=== PATIENT | male | born 1955 | race Caucasian/White ===

== ENCOUNTER 2016-11-14 22:49 | Emergency (ER) | payer BC ==
[~2016-11-14 22:49] MED LIST: ASCO500T16 PO; CHOL100010 PO; CYAN500T13 PO; DILT-115 PO; FERR325T PO; TOPI50TA16 PO
[2016-11-14 22:53] VITALS: TEMP 37; Ht 180.3 cm
[2016-11-14] MEDS ORDERED: DIAZEPAM INJ 5 MG/ML 2 ML CARP IM STA (23:21)
[2016-11-14] MEDS ORDERED: DEXAMETHASONE SOD INJ 10 MG/ML VIAL IM STA (23:21)
--- NOTE | 2016-11-14 23:45 | EMERGENCY ROOM VISIT NOTE ---
ED Visit Note First contact with patient: 23:10 CHIEF COMPLAINT: Low back pain HISTORY OF PRESENT ILLNESS: This 61-year-old male patient presents to the emergency department, ambulatory, complaining of pain in the low back which began Tuesday after slipping in the shower. The patient states he landed on his left side. He has been experiencing intermittent left lower back pain for the past 5 days. The pain is now constant and worse with movement. The pain worsens with coughing, sneezing, or other sharp movements. The patient notes the pain as sharp and a 10/10 at its worst. The patient has taken nothing for relief of the pain. He has been using an ice pack, icy hot, and warm compresses which to relieve the pain temporarily. The patient denies any loss of control of their bowel or bladder functions. There has been no leg numbness or weakness, and no change in sensation. No nausea or vomiting or abdominal pain. No chest pain or shortness of breath. The patient has not had prior back injuries. No dysuria or increased urinary frequency. No hematuria. REVIEW OF SYSTEMS: A 10 system review of systems was performed with positives and pertinent negatives listed in the history of present illness. All other systems were reviewed and are negative. ALLERGIES: None MEDICATIONS: Please see list. I did personally review the patient's medication list with him at bedside. PMH: Hypertension, seizures SOCIAL HISTORY: The patient lives locally with family. He denies drug use. The patient does admit to occasional alcohol use. The patient states he smokes approximately 6 cigarettes per day. PHYSICAL EXAM: VITALS: Vitals are noted on the nurse's note and reviewed by myself. Vital signs stable. GENERAL: This is a 61-year-old male, in no acute distress, nondiaphoretic, well- developed well-nourished. SKIN: 2 small bruises noted on the left low back in the lumbar region. These are distal to the ribs, but proximal to the pelvis. The skin was otherwise without rashes, erythema, edema, or bruising. Capillary refill less than 2 seconds. NECK: Supple without nuchal rigidity. No cervical spine tenderness. No paraspinous muscle tenderness. HEART: Regular rate and rhythm without murmurs gallops or rubs. LUNGS: Clear to auscultation bilaterally without wheezes, rales or rhonchi. ABDOMEN: Positive bowel sounds x 4. Normal tympanic percussion. Soft, nontender, without masses or organomegaly. Ham sign negative. MUSCULOSKELETAL: No muscle atrophy, erythema, or edema noted of the back. There is no tenderness over the lumbar spinous processes. There is significant tenderness over the paraspinous muscles on the left in the lumbar region. There is no tenderness over the thoracic spine or paraspinous muscles. There are muscle spasms present. The patient is slow to move around with maximum tenderness with sitting from a lying position. Negative straight leg raise test. NEURO: Patient was alert and oriented to person place and time. Normal sensation to light and sharp touch. Deep tendon reflexes 2+ in the lower extremities. Dorsalis pedis pulse 2+ bilaterally. Strength 5/5 and equal in the bilateral lower extremities. EMERGENCY DEPARTMENT COURSE: The patient was seen and evaluated as above. He was given Valium and Decadron and did note mild relief in his symptoms. A urinalysis was performed and revealed no hematuria. Upon reexamination of the patient, he is now complaining of tenderness in the posterior left ribs. An x- ray was ordered and reviewed by myself and Dr. Agustin. We do suspect a possible rib fracture, however did not note anything significantly displaced. This will be reviewed by radiologist tomorrow morning. Based on the patient's symptoms and workup, and his improvement with medications, I do suspect musculoskeletal cause of his injury. He was discharged home in good condition. Patient was found to have normal blood pressure on screening and does not require follow-up. I attest that I have personally reviewed the patient's current medication list. I did consult with PDMP and did not note any red flags. DIFFERENTIAL DIAGNOSIS: Internal bleeding, lumbar strain, lumbar contusion, lumbar fracture, pelvic fracture, rib fracture, splenic laceration, renal contusion, and others DIAGNOSIS: Lumbar strain with muscle spasms, possible rib fracture DISCHARGE INSTRUCTIONS AND TREATMENT: You have been treated in the Emergency Department for Back Pain. You have received pain medicine in the emergency department which impairs your ability to operate a vehicle. It is illegal for you to drive after receiving these medicines. You have been prescribed OxyIR to be used for pain control. This is a narcotic medication. You cannot drive or consume alcohol while on this medicine. This medicine should only be used for pain that cannot be controlled with over-the- counter pain medicines. You have been prescribed Flexeril (cyclobenzaprine) 1-2 tabs orally, three times per day. Do NOT exceed 30 mg (6 tabs) per day. Take your first dose at bedtime as it can make you drowsy. Always take all medications as prescribed. ( your homepack is for 10mg tabs. Take 0.5-1 tablet at a time of the pills you were given in the ED). You have been prescribed a Medrol Dosepak. This is a steroid which will help decrease your inflammation, redness, and itch. Take the medicine as prescribed. Take the ENTIRE 6 day course of the steroids. For pain control, you can use the following ykkp-wwi-mqvavyw medicines (if >12 yo): Ibuprofen(Motrin, Advil) may be used for fever or pain. Use 600mg every six hours as needed. Take with food. Avoid using more than 2400mg in a 24 hour period. Do not use 2400mg per day for more than three consecutive days without physician direction. Prolonged inappropriate use can lead to stomach upset or ulcers. (AND/OR) Acetaminophen(Tylenol) may be used for fever or pain. Use 1000mg every six hours as needed. Avoid using more than 3000mg in a 24 hour period. If this is an acute injury, ice can be applied to the area of pain for the first 3 days to help decrease pain and inflammation. After the first 3 days, a heating pad can be used over the area for continued soothing relief. You should schedule a follow-up appointment in 2-3 days with your Primary Care Provider for further evaluation and treatment of your back pain. Return to the Emergency Department if your current symptoms worsen despite treatment course outlined above, or if you develop any of the following symptoms : intractable pain despite aforementioned treatment course, loss of control of your bowel or bladder, numbness or tingling in your groin, or development of a fever. Problem List Medical Problems: (1) Thyroid mass Status: Chronic Current/Historical Medications Scheduled Ascorbic Acid (Ascorbic Acid), 500 MG PO DAILY Diltiazem Hcl Ext Rel (Tiazac), 240 MG PO DAILY Ferrous Sulfate (Ferrous Sulfate), 325 MG PO DAILY Topiramate (Topamax), 50 MG PO BID Allergies Coded Allergies: No Known Allergies (Verified , 11/14/16) Vital Signs Date Time Temp Pulse Resp B/P (MAP) Pulse Ox O2 Delivery O2 Flow Rate FiO2 11/14/16 22:53 37.0 82 18 151/93 98 Room Air Medications Administered Medications (Trade) Dose Ordered Sig/Alicia Route Start Time Stop Time Status Last Admin Dose Admin Dexamethasone Sodium Phosphate (Decadron Inj) 10 mg NOW STAT IM 11/14/16 23:21 11/14/16 23:23 DC 11/14/16 23:40 10 MG Diazepam (Valium Inj) 10 mg NOW STAT IM 11/14/16 23:21 11/14/16 23:23 DC 11/14/16 23:40 10 MG Departure Information Impression Primary Impression: Lumbar contusion Additional Impression: Contusion of rib on left side Dispostion Home / Self-Care Condition GOOD Prescriptions Methylprednisolone (MEDROL DOSEPAK) 4 Mg Addison 0 PO DAILY, #1 PKT Prov: Missy Taveras PA-C 11/15/16 Oxycodone Ir (Roxicodone Ir) 5 Mg Tab 1 TAB PO Q4-6H Y for Pain, #15 TAB For Initial Treatment Prov: Missy Taveras PA-C 11/15/16 Cyclobenzaprine Hcl (FLEXERIL) 5 Mg Tab 5 MG PO TID, #15 TAB PRN Prov: Missy Taveras PA-C 11/15/16 Referrals Sally Hopkins (PCP) Patient Instructions ED Contusion Back, ED Contusion Vs Minor Fx Rib, ED Low Back Pain Injury, [facility] Additional Instructions You have been treated in the Emergency Department for Back Pain. You have received pain medicine in the emergency department which impairs your ability to operate a vehicle. It is illegal for you to drive after receiving these medicines. You have been prescribed OxyIR to be used for pain control. This is a narcotic medication. You cannot drive or consume alcohol while on this medicine. This medicine should only be used for pain that cannot be controlled with over-the- counter pain medicines. You have been prescribed Flexeril (cyclobenzaprine) 1-2 tabs orally, three times per day. Do NOT exceed 30 mg (6 tabs) per day. Take your first dose at bedtime as it can make you drowsy. Always take all medications as prescribed. ( your homepack is for 10mg tabs. Take 0.5-1 tablet at a time of the pills you were given in the ED). You have been prescribed a Medrol Dosepak. This is a steroid which will help decrease your inflammation, redness, and itch. Take the medicine as prescribed. Take the ENTIRE 6 day course of the steroids. For pain control, you can use the following goay-sjy-pvvgdrx medicines (if >12 yo): Ibuprofen(Motrin, Advil) may be used for fever or pain. Use 600mg every six hours as needed. Take with food. Avoid using more than 2400mg in a 24 hour period. Do not use 2400mg per day for more than three consecutive days without physician direction. Prolonged inappropriate use can lead to stomach upset or ulcers. (AND/OR) Acetaminophen(Tylenol) may be used for fever or pain. Use 1000mg every six hours as needed. Avoid using more than 3000mg in a 24 hour period. If this is an acute injury, ice can be applied to the area of pain for the first 3 days to help decrease pain and inflammation. After the first 3 days, a heating pad can be used over the area for continued soothing relief. You should schedule a follow-up appointment in 2-3 days with your Primary Care Provider for further evaluation and treatment of your back pain. Return to the Emergency Department if your current symptoms worsen despite treatment course outlined above, or if you develop any of the following symptoms : intractable pain despite aforementioned treatment course, loss of control of your bowel or bladder, numbness or tingling in your groin, or development of a fever. Work Instructions Return To Work: 2 days Problem Qualifiers Primary Impression: Lumbar contusion Encounter type: initial encounter Qualified Codes: S30.0XXA - Contusion of lower back and pelvis, initial encounter Additional Impression: Contusion of rib on left side Encounter type: initial encounter Qualified Codes: S20.212A - Contusion of left front wall of thorax, initial encounter
[2016-11-15] MEDS ORDERED: CYCL5TAB PO (01:03)
[2016-11-15] MEDS ORDERED: OXYC1TAB3 PO (01:03)
[2016-11-15] MEDS ORDERED: METH4PAK PO (01:03)
[2016-11-15] MEDS ORDERED: FLEXERIL HOME PACK 10 MG VIAL PO ONE (01:15)
[2016-11-15] MEDS ORDERED: OXYCODONE IR HOME PACK PO ONE (01:15)
[2016-11-15 01:20] VITALS: BP 132/79; PULSE 63; O2SAT 95
--- NOTE | 2016-11-15 06:42 | DIAGNOSTIC IMAGING REPORT ---
L RIBS UNILATERAL WITH PA CHEST HISTORY: 61 years-old Male left posterior rib pain s/p fall acute left-sided rib pain status post fall. COMPARISON: Chest radiograph 06/04/2014 TECHNIQUE: Frontal view of the chest with 4 views of the left ribs FINDINGS: Cardiomediastinal and hilar silhouettes are within normal limits. There is no pneumothorax, pleural effusion or focal airspace consolidation. Surgical suture material projects over the left upper lobe. Ill-defined lucency is noted involving the posterior aspect of the left 11th rib without displaced fracture identified. Remaining ribs appear unremarkable. IMPRESSION: 1. No acute cardiopulmonary process. No pneumothorax. 2. Ill-defined lucency of the posterior left 11th rib may reflect acute nondisplaced fracture. Correlate with point tenderness. No acute displaced rib fracture is identified. The above report was generated using voice recognition software. It may contain grammatical, syntax or spelling errors. Electronically signed by: Eron Ceballos M.D. 11/15/2016 6:41 AM Dictated Date/Time: 11/15/2016 6:37 AM
== END 2016-11-15 01:20 | disposition home or self-care (01) ==
LOC: C.EDB 22:51
DX: S30.0XXA Contusion of lower back and pelvis, initial encounter (principal); S20.212A Contusion of left front wall of thorax, initial encounter; W01.0XXA Fall on same level from slipping, tripping and stumbling without subsequent striking against object, initial encounter; Y93.E1 Activity, personal bathing and showering; I10 Essential (primary) hypertension; F17.210 Nicotine dependence, cigarettes, uncomplicated; Z79.899 Other long term (current) drug therapy

== ENCOUNTER 2017-07-01 21:58 | Inpatient (IN) | payer BC, OTHER ==
[~2017-07-01] VITALS: Ht 177.8 cm; Wt 61.9 kg
[~2017-07-01 21:58] MED LIST changes: -CHOL100010 PO; -CYAN500T13 PO; +FERR1TAB62 PO; -FERR325T PO
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
[2017-07-01 22:43] LABS: BASO % 1.7 %; BASO ABS # 0.13 K/uL (0-0.2); EOS ABS # 0.22 K/uL (0-0.5); HEMATOCRIT 40.6 % (42-52); HEMOGLOBIN 14.1 g/dL (14.0-18.0); IG# 0.06 K/uL (0.00-0.02); LYMPH % 32.1 %; LYMPH ABS # 2.39 K/uL (1.2-3.4); MEAN CELL VOLUME 98.8 fL (80-100); MEAN CORPUSCULAR HEMOGLOBIN 34.3 pg (25-34); MEAN CORPUSCULAR HGB CONC 34.7 g/dl (32-36); MEAN PLATELET VOLUME 9.4 fL (7.4-10.4); MONO % 8.9 %; MONO ABS # 0.66 K/uL (0.11-0.59); NEUT % 53.5 %; NEUT ABS # 3.99 K/uL (1.4-6.5); PLATELET COUNT 260 K/uL (130-400); RED CELL DISTRIBUTION WIDTH CV 12.8 % (11.5-14.5); RED CELL DISTRIBUTION WIDTH SD 46.4 fL (36.4-46.3); WHITE BLOOD COUNT 7.45 K/uL (4.8-10.8)
[2017-07-01 22:50] LABS: PTT PATIENT 25.7 SECONDS (21.0-31.0)
[2017-07-01 23:06] LABS: ALBUMIN 4.3 gm/dl (3.4-5.0); CALCIUM 8.2 mg/dl (8.5-10.1); CREATININE 0.84 mg/dl (0.60-1.40); POTASSIUM 3.3 mmol/L (3.5-5.1)
[2017-07-01 23:09] LABS: TOTAL PROTEIN 7.6 gm/dl (6.4-8.2)
--- NOTE | 2017-07-01 23:18 | DIAGNOSTIC IMAGING REPORT ---
R PELVIS/UNILATERAL HIP 2-3VIEWS CLINICAL HISTORY: intoxicated, R hip/thigh pain, ?shortened COMPARISON STUDY: None. FINDINGS: Essentially nondisplaced intertrochanteric fracture of the proximal right femur. No dislocation within the hips. The visualized pelvic bones and left hip appear intact. IMPRESSION: Nondisplaced intertrochanteric fracture of the proximal right femur. Electronically signed by: Darron Zarco M.D. 07/01/2017 11:16 PM Dictated Date/Time: 07/01/2017 11:15 PM
--- NOTE | 2017-07-01 23:19 | DIAGNOSTIC IMAGING REPORT ---
CHEST ONE VIEW PORTABLE HISTORY: Intoxication. Fall. EVALUATE FOR TRAUMA/INJURY COMPARISON: Chest 06/04/2014. FINDINGS: The lungs are clear. The heart is normal in size. No pleural effusions. No pneumothorax. No acute fractures within the visualized osseous structures. Surgical clips overlying the left upper chest are again noted. Old, healed left-sided rib fractures. IMPRESSION: No significant change compared to the prior study. No acute process. Electronically signed by: Darron Zarco M.D. 07/01/2017 11:18 PM Dictated Date/Time: 07/01/2017 11:17 PM
--- NOTE | 2017-07-01 23:26 | DIAGNOSTIC IMAGING REPORT ---
CERVICAL SPINE CT CT DOSE: HISTORY: Right-sided head injury. Unknown trauma. EVALUATE FOR TRAUMA/INJURY TECHNIQUE: Multiaxial CT images of the cervical spine were performed and reformatted in the sagittal and coronal plane without the use of contrast. A dose lowering technique was utilized adhering to the principles of ALARA. COMPARISON: None. FINDINGS: No fractures. No subluxation. Prevertebral soft tissues and the C1-C2 interval are intact. No pneumothorax. Moderate to space narrowing at C5-C6. Mild disc space narrowing C4-C5. A 9 mm right thyroid nodule. Mild emphysema. IMPRESSION: No fractures within the cervical spine. Electronically signed by: Darron Zarco M.D. 07/01/2017 11:25 PM Dictated Date/Time: 07/01/2017 11:18 PM
--- NOTE | 2017-07-01 23:31 | DIAGNOSTIC IMAGING REPORT ---
HEAD CT NONCONTRAST CT DOSE: 1125.68 mGy.cm HISTORY: Right-sided head injury. EVALUATE FOR TRAUMA/INJURY TECHNIQUE: Multiaxial CT images of the head were performed without the use of intravenous contrast. Automated exposure control was utilized for this study. A dose lowering technique was utilized adhering to the principles of ALARA. Comparison: Head CT 08/08/2008. Findings: The paranasal sinuses and mastoid air cells are clear. The calvarium and skull base are intact. The ventricles are within normal limits. There is no mass, hematoma, midline shift, or acute infarct. Mild atrophic changes are again noted. Right frontal scalp hematoma. Impression: No acute intracranial abnormality. Right frontal scalp injury. Electronically signed by: Darron Zarco M.D. 07/01/2017 11:30 PM Dictated Date/Time: 07/01/2017 11:25 PM
[2017-07-01] MEDS ORDERED: THIAMINE HCL 100 MG/ML 2 ML VIAL IV STA (23:49)
[2017-07-01] MEDS ORDERED: D5W AND 1/2NSS + 40MEQ KCL 1,000 ML IV STA (23:49)
[2017-07-01] MEDS ORDERED: FoLIC ACID INJ 1 MG in SYRINGE 9.8 ML IV STA (23:49)
[2017-07-02] VITALS (10 sets, daily range): BP systolic 106–156; BP diastolic 70–90; PULSE 60–88; TEMP 36.5–37.2; O2SAT 96–99; Ht 177.8 cm; Wt 61.9 kg
[2017-07-02] MEDS ORDERED: MULTI-VITAMIN INFUSION INJ 10 ML, THIAMINE HCL INJ 100 MG, FoLIC ACID INJ 1 MG in SODIU... IV STA (00:41)
[2017-07-02] MEDS ORDERED: THIAMINE HCL 100 MG TAB PO STA (00:41)
[2017-07-02] MEDS ORDERED: LORAZEPAM 2 MG/ML 1 ML VIAL IV PRN (00:45)
[2017-07-02] MEDS ORDERED: GABAPENTIN 600 MG TAB PO SCH (00:45)
[2017-07-02] MEDS ORDERED: KETOROLAC TROMETHAMINE 15 MG/ML VIAL IV STA (01:28)
--- NOTE | 2017-07-02 01:47 | History and Physical ---
History & Physical Date & Time of Service: July 02, 2017 at 01:05 Chief Complaint: ETOH Primary Care Physician: Sally Hopkins History of Present Illness Source: patient, hospital records 61 years old male with past medical history of hypertension, alcohol abuse was brought to the ER by EMS for alcohol intoxication. Patient said that he went out with with a few friends yesterday around 2 PM and started to drink alcohol. He said that he remember that he got a 32 ounces glass of beer initially followed with a few cans of beers. He said that his friend dropped him home later at night. He said when he got home he drank few more beers. Then he went outside to smoke cigarette. he said when he tries to get back inside the house, he fell while climbing the stairs. He said he was unable to get up. He said that his neighbor saw him and called EMS for help. He said he told his neighbor not to call the ambulance. Patient said he did not lose consciousness. He said he knew when the EMS came. He said that he hit his head and his right hip area. Prior to this incident, Patient said that the last time he had a drink was a week ago. He said that his friends were the one that invited him to drink yesterday. Patient said that he usually drank 1 or 2 beers after work. He said that last night he had a little bit too much of beers. In the ER his alcohol level was 364. Patient denies any previous history of alcohol withdrawal or DT. He is complaining of right side hip pain from the fall. [facility] He said that is a little bit depressed because his is going to be placed at [facility]. Denies any chest pain, palpitation, dizziness, shortness of breath and hallucination. Past Medical/Surgical History Medical Problems: (1) Alcohol intoxication (2) Cervical strain (3) Contusion of rib on left side (4) Depression (5) Fatigue (6) Febrile illness, acute (7) Hypertension Nos (8) Hypotension Nos (9) Lumbar contusion (10) Overuse syndrome (11) Right shoulder strain (12) Right shoulder strain (13) SOB (shortness of breath) (14) Thyroid mass Family History Diabetes mellitus Social History Smoking Status: Current Every Day Smoker Drug Use: none Marital Status: Occupational Status: employed Allergies Coded Allergies: No Known Allergies (Verified , 11/14/16) Home Medications Scheduled Ascorbic Acid (Ascorbic Acid), 500 MG PO DAILY Diltiazem Hcl Ext Rel (Tiazac), 240 MG PO DAILY Ferrous Sulfate (Ferrous Sulfate), 325 MG PO DAILY Topiramate (Topamax), 50 MG PO BID Review of Systems Constitutional: + weakness, No fever, No chills Eyes: No worsening of vision, No eye pain ENT: No hearing loss, No nasal symptoms Respiratory: No cough, No shortness of breath, No dyspnea on exertion Cardiovascular: No chest pain, No claudication, No palpitations Abdomen: No pain, No nausea, No diarrhea Musculoskeletal: + joint pain, No calf pain, No problem reported (Right hip pain) Genitourinary - Male: No hematuria, No dysuria Neurologic: + weakness, + balance problems Psychiatric: No anxiety, No insomnia Endocrine: No fatigue, No excessive thirst Hematologic / Lymphatic: No clotting problems Integumentary: No rash, No itch Physical Exam Vital Signs Date Time Temp Pulse Resp B/P (MAP) Pulse Ox O2 Delivery O2 Flow Rate FiO2 07/02/17 00:30 75 18 110/83 96 Room Air 07/02/17 00:03 78 16 110/83 96 Room Air 07/01/17 22:12 68 07/01/17 22:05 100 Room Air 07/01/17 22:05 36.6 64 14 145/93 100 Room Air General Appearance: no apparent distress, + pertinent finding (smell alcohol) Head: + pertinent finding (hematoma of right lateral forehead) Eyes: PERRL, + pertinent finding (nystagmus) ENT: hearing grossly normal Neck: no JVD, trachea midline Respiratory/Chest: lungs clear, no respiratory distress, no accessory muscle use Cardiovascular: regular rate, rhythm, no JVD, no murmur Abdomen/GI: normal bowel sounds, non tender Back: normal inspection, no CVA tenderness Extremities/Musculoskelatal: no calf tenderness, + pertinent finding (bruising in right knee) Neurologic/Psych: alert, normal mood/affect, oriented x 3 Skin: no rash, + rash Diagnostics Laboratory Results Results Past 24 Hours Test 07/01/17 22:21 Range/Units White Blood Count 7.45 4.8-10.8 K/uL Red Blood Count 4.11 4.7-6.1 M/uL Hemoglobin 14.1 14.0-18.0 g/dL Hematocrit 40.6 42-52 % Mean Corpuscular Volume 98.8 80-100 fL Mean Corpuscular Hemoglobin 34.3 25-34 pg Mean Corpuscular Hemoglobin Concent 34.7 32-36 g/dl Platelet Count 260 130-400 K/uL Mean Platelet Volume 9.4 7.4-10.4 fL Neutrophils (%) (Auto) 53.5 % Lymphocytes (%) (Auto) 32.1 % Monocytes (%) (Auto) 8.9 % Eosinophils (%) (Auto) 3.0 % Basophils (%) (Auto) 1.7 % Neutrophils # (Auto) 3.99 1.4-6.5 K/uL Lymphocytes # (Auto) 2.39 1.2-3.4 K/uL Monocytes # (Auto) 0.66 0.11-0.59 K/uL Eosinophils # (Auto) 0.22 0-0.5 K/uL Basophils # (Auto) 0.13 0-0.2 K/uL RDW Standard Deviation 46.4 36.4-46.3 fL RDW Coefficient of Variation 12.8 11.5-14.5 % Immature Granulocyte % (Auto) 0.8 % Immature Granulocyte # (Auto) 0.06 0.00-0.02 K/uL Prothrombin Time 10.0 9.0-12.0 SECONDS Prothromb Time International Ratio 1.0 0.9-1.1 Activated Partial Thromboplast Time 25.7 21.0-31.0 SECONDS Partial Thromboplastin Ratio 1.0 Sodium Level 138 136-145 mmol/L Potassium Level 3.3 3.5-5.1 mmol/L Chloride Level 108 98-107 mmol/L Carbon Dioxide Level 21 21-32 mmol/L Anion Gap 9.0 3-11 mmol/L Blood Urea Nitrogen 6 7-18 mg/dl Creatinine 0.84 0.60-1.40 mg/dl Est Creatinine Clear Calc Drug Dose 80.9 ml/min Estimated GFR () 109.5 Estimated GFR (Non- 94.5 BUN/Creatinine Ratio 6.8 10-20 Random Glucose 89 70-99 mg/dl Calcium Level 8.2 8.5-10.1 mg/dl Total Bilirubin 0.3 0.2-1 mg/dl Direct Bilirubin 0.1 0-0.2 mg/dl Aspartate Amino Transf (AST/SGOT) 20 15-37 U/L Alanine Aminotransferase (ALT/SGPT) 22 12-78 U/L Alkaline Phosphatase 90 45-117 U/L Total Protein 7.6 6.4-8.2 gm/dl Albumin 4.3 3.4-5.0 gm/dl Ethyl Alcohol mg/dL 364.0 0-3 mg/dl Diagnostic Radiology CT DOSE: HISTORY: Right-sided head injury. Unknown trauma. EVALUATE FOR TRAUMA/INJURY TECHNIQUE: Multiaxial CT images of the cervical spine were performed and reformatted in the sagittal and coronal plane without the use of contrast. A dose lowering technique was utilized adhering to the principles of ALARA. COMPARISON: None. FINDINGS: No fractures. No subluxation. Prevertebral soft tissues and the C1-C2 interval are intact. No pneumothorax. Moderate to space narrowing at C5-C6. Mild disc space narrowing C4-C5. A 9 mm right thyroid nodule. Mild emphysema. IMPRESSION: No fractures within the cervical spine. Electronically signed by: Darron Zarco M.D. 07/01/2017 11:25 PM Dictated Date/Time: 07/01/2017 11:18 PM CHEST ONE VIEW PORTABLE HISTORY: Intoxication. Fall. EVALUATE FOR TRAUMA/INJURY COMPARISON: Chest 06/04/2014. FINDINGS: The lungs are clear. The heart is normal in size. No pleural effusions. No pneumothorax. No acute fractures within the visualized osseous structures. Surgical clips overlying the left upper chest are again noted. Old, healed left-sided rib fractures. IMPRESSION: No significant change compared to the prior study. No acute process. Electronically signed by: Darron Zarco M.D. 07/01/2017 11:18 PM Dictated Date/Time: 07/01/2017 11:[address] DOSE: 1125.68 mGy.cm HISTORY: Right-sided head injury. EVALUATE FOR TRAUMA/INJURY TECHNIQUE: Multiaxial CT images of the head were performed without the use of intravenous contrast. Automated exposure control was utilized for this study. A dose lowering technique was utilized adhering to the principles of ALARA. Comparison: Head CT 08/08/2008. Findings: The paranasal sinuses and mastoid air cells are clear. The calvarium and skull base are intact. The ventricles are within normal limits. There is no mass, hematoma, midline shift, or acute infarct. Mild atrophic changes are again noted. Right frontal scalp hematoma. Impression: No acute intracranial abnormality. Right frontal scalp injury. Electronically signed by: Darron Zarco M.D. 07/01/2017 11:30 PM Dictated Date/Time: 07/01/2017 11:25 PM R PELVIS/UNILATERAL HIP 2-3VIEWS CLINICAL HISTORY: intoxicated, R hip/thigh pain, ?shortened COMPARISON STUDY: None. FINDINGS: Essentially nondisplaced intertrochanteric fracture of the proximal right femur. No dislocation within the hips. The visualized pelvic bones and left hip appear intact. IMPRESSION: Nondisplaced intertrochanteric fracture of the proximal right femur. Electronically signed by: Darron Zarco M.D. 07/01/2017 11:16 PM Dictated Date/Time: 07/01/2017 11:15 PM Impression Assessment and Plan Alcohol intoxication Alcohol abuse Alcohol level on admission 364 Starting on gabapentin and Ativan alcohol withdrawal protocol Started on banana bag Continue IV fluid We will monitor for signs of withdrawal Counseling on alcohol cessation Check B12, folic acid will start on oral thiamine and folic acid in the a.m. Right Hip pain Xray showed nondisplaced intertrochanteric fracture of the proximal right femur. We will start on NSAIDs for the pain Consult orthopedic PT/ OT S/P Fall Ambulatory dysfunction Fall precaution Might benefit inpatient rehab HTN BP stable Continue diltiazem History of headache Has been controlled with Topamax Discussed with patient that he should not drink alcohol while on Topamax Stable Hypokalemia K replaced Monitor BMP DVT px SCD (due to hematoma head) CODE STATUS FULL CODE (but in the event something happens, He does not want to remain on life support) Resuscitation Status VTE Prophylaxis Will order VTE Prophylaxis: Yes
[2017-07-02] MEDS ORDERED: GABAPENTIN 800MG LOADING DOSE PO ONE (02:45)
[2017-07-02 06:37] LABS: HEMATOCRIT 37.3 % (42-52); HEMOGLOBIN 12.9 g/dL (14.0-18.0); MEAN CELL VOLUME 98.9 fL (80-100); MEAN CORPUSCULAR HEMOGLOBIN 34.2 pg (25-34); MEAN CORPUSCULAR HGB CONC 34.6 g/dl (32-36); MEAN PLATELET VOLUME 9.4 fL (7.4-10.4); PLATELET COUNT 243 K/uL (130-400); RED CELL DISTRIBUTION WIDTH SD 46.9 fL (36.4-46.3)
[2017-07-02 07:01] LABS: CALCIUM 7.3 mg/dl (8.5-10.1); CREATININE 0.63 mg/dl (0.60-1.40); POTASSIUM 4.1 mmol/L (3.5-5.1)
--- NOTE | 2017-07-02 08:31 | Orthopedic Consultation ---
Orthopedic Consultation Date of Consultation: July 02, 2017. Attending Physician: Tremaine Jiménez DO Reason for Consultation: Right hip fracture History of Present Illness Patient is a 61-year-old male who started drinking yesterday afternoon around 2. He was dropped off at home by his friends and continued having a few beers. He is turning up the stairs tripped and fell landing onto his right hip. He was seen by his neighbors as he was outside for a cigarette. EMS was called. X -rays demonstrated a intertrochanteric hip fracture. He is currently complaining of pain in the right hip. Denies previous injury. Denies any radicular symptoms. Denies any neurologic symptoms. Past Medical/Surgical History Medical Problems: (1) Alcohol abuse Status: Acute (2) Contusion of rib on left side Status: Acute (3) Hip fracture, right Status: Acute (4) Hypokalemia Status: Acute (5) Intoxication Status: Acute (6) Lumbar contusion Status: Acute Family History Diabetes mellitus Social History Smoking Status: Current Every Day Smoker Drug Use: none Marital Status: Housing Status: lives with family Occupation Status: employed Allergies Coded Allergies: No Known Allergies (Verified , 11/14/16) Home Medications Scheduled Ascorbic Acid (Ascorbic Acid), 500 MG PO DAILY Diltiazem Hcl Ext Rel (Tiazac), 240 MG PO DAILY Ferrous Sulfate (Ferrous Sulfate), 325 MG PO DAILY Topiramate (Topamax), 50 MG PO BID Current Inpatient Medications Current Inpatient Medications Medications (Trade) Dose Ordered Sig/Alicia Route Start Time Stop Time Status Last Admin Dose Admin Multivitamins 10 ml/Thiamine HCl 100 mg/Folic Acid 1 mg/Sodium Chloride 1,011.2 ml @ 100 mls/ hr Q10H7M STAT IV 07/02/17 00:41 07/02/17 10:47 07/02/17 02:16 100 MLS/HR Ascorbic Acid (Vitamin C Tab) 500 mg DAILY PO 07/02/17 09:00 08/01/17 08:59 Diltiazem HCl (TIAzac CAP) 240 mg DAILY PO 07/02/17 09:00 08/01/17 08:59 Topiramate (Topamax Tab) 50 mg BID PO 07/02/17 09:00 08/01/17 08:59 Ferrous Sulfate (Feosol Tab) 325 mg DAILY PO 07/02/17 09:00 08/01/17 08:59 Pantoprazole Sodium (Protonix Tab) 40 mg QAM PO 07/02/17 09:00 07/05/17 09:01 Lorazepam (Ativan Inj) 1 mg ONE PRN IV 07/02/17 00:45 Thiamine HCl (Vitamin B-1 Tab) 100 mg QAM PO 07/02/17 09:00 08/01/17 08:59 Folic Acid (Folvite Tab) 1 mg QAM PO 07/02/17 09:00 08/01/17 08:59 Sodium Chloride 1,000 ml @ 100 mls/hr Q10H IV 07/02/17 12:15 07/02/17 22:14 Gabapentin (Neurontin Cap) 400 mg Q6H PO 07/02/17 09:00 07/02/17 15:01 Gabapentin (Neurontin Cap) 400 mg Q8H PO 07/02/17 23:00 07/03/17 15:01 Gabapentin (Neurontin Cap) 400 mg Q12H PO 07/04/17 06:00 07/04/17 18:01 Gabapentin (Neurontin Cap) 400 mg Q24H PO 07/05/17 18:00 07/05/17 18:01 Nicotine (Nicoderm Cq 7 Mg Patch) 1 patch QAM TD 07/02/17 09:00 08/01/17 08:59 Miscellaneous (Remove Nicoderm Patch) 1 ea HS N/A 07/02/17 21:00 08/01/17 20:59 Review of Systems Constitutional: No fever Cardiovascular: No chest pain Musculoskeletal: + joint pain Physical Exam Date Time Temp Pulse Resp B/P (MAP) Pulse Ox O2 Delivery O2 Flow Rate FiO2 07/02/17 07:06 36.7 61 18 121/79 (93) 99 Room Air 07/02/17 02:30 96 Room Air 07/02/17 02:30 36.5 77 16 106/72 96 Room Air 07/02/17 01:58 75 16 98/65 96 Room Air 07/02/17 00:30 75 18 110/83 96 Room Air 07/02/17 00:03 78 16 110/83 96 Room Air 07/01/17 22:12 68 07/01/17 22:05 100 Room Air 07/01/17 22:05 36.6 64 14 145/93 100 Room Air Right lower extremity: Tender to palpation along hip. Pain with internal/ external rotation hip. Distal light touch sensation is intact. Motor function the foot is normal. Left hip: Unremarkable General Appearance: WD/WN Head: normocephalic Eyes: normal inspection Neck: supple Respiratory/Chest: lungs clear Cardiovascular: regular rate, rhythm Laboratory Results Last 24 Hours Test 07/01/17 22:21 07/02/17 05:55 White Blood Count 7.45 K/uL 8.40 K/uL Red Blood Count 4.11 M/uL 3.77 M/uL Hemoglobin 14.1 g/dL 12.9 g/dL Hematocrit 40.6 % 37.3 % Mean Corpuscular Volume 98.8 fL 98.9 fL Mean Corpuscular Hemoglobin 34.3 pg 34.2 pg Mean Corpuscular Hemoglobin Concent 34.7 g/dl 34.6 g/dl Platelet Count 260 K/uL 243 K/uL Mean Platelet Volume 9.4 fL 9.4 fL Neutrophils (%) (Auto) 53.5 % Lymphocytes (%) (Auto) 32.1 % Monocytes (%) (Auto) 8.9 % Eosinophils (%) (Auto) 3.0 % Basophils (%) (Auto) 1.7 % Neutrophils # (Auto) 3.99 K/uL Lymphocytes # (Auto) 2.39 K/uL Monocytes # (Auto) 0.66 K/uL Eosinophils # (Auto) 0.22 K/uL Basophils # (Auto) 0.13 K/uL RDW Standard Deviation 46.4 fL 46.9 fL RDW Coefficient of Variation 12.8 % 13.0 % Immature Granulocyte % (Auto) 0.8 % Immature Granulocyte # (Auto) 0.06 K/uL Prothrombin Time 10.0 SECONDS Prothromb Time International Ratio 1.0 Activated Partial Thromboplast Time 25.7 SECONDS Partial Thromboplastin Ratio 1.0 Sodium Level 138 mmol/L 141 mmol/L Potassium Level 3.3 mmol/L 4.1 mmol/L Chloride Level 108 mmol/L 115 mmol/L Carbon Dioxide Level 21 mmol/L 21 mmol/L Anion Gap 9.0 mmol/L 5.0 mmol/L Blood Urea Nitrogen 6 mg/dl 4 mg/dl Creatinine 0.84 mg/dl 0.63 mg/dl Est Creatinine Clear Calc Drug Dose 80.9 ml/min 107.8 ml/min Estimated GFR () 109.5 123.3 Estimated GFR (Non- 94.5 106.4 BUN/Creatinine Ratio 6.8 6.9 Random Glucose 89 mg/dl 94 mg/dl Calcium Level 8.2 mg/dl 7.3 mg/dl Total Bilirubin 0.3 mg/dl Direct Bilirubin 0.1 mg/dl Aspartate Amino Transf (AST/SGOT) 20 U/L Alanine Aminotransferase (ALT/SGPT) 22 U/L Alkaline Phosphatase 90 U/L Total Protein 7.6 gm/dl Albumin 4.3 gm/dl Ethyl Alcohol mg/dL 364.0 mg/dl Magnesium Level 2.1 mg/dl Vitamin B12 Level 231 pg/mL Folate > 24.00 ng/mL Assessment & Plan Nondisplaced right intertrochanteric fracture Recommendation for this injury would be for open reduction internal fixation. This would allow him to weight-bear immediately and mobilize. Risk, benefits, alternatives to surgery were discussed with the patient these are including but not limited to pain, stiffness, DVT, PE, infection, nonunion, damage to blood vessels or nerves, risks of anesthesia. He wishes to proceed with a right intertrochanteric fixation nail. He has been n.p.o. and will plan for surgery later this morning.
[2017-07-02] MEDS ORDERED: MIDAZOLAM HCL 1 MG/ML 2ML VIAL ONE (08:38)
[2017-07-02] MEDS ORDERED: KETOROLAC TROMETHAMINE 30 MG/ML VIAL ONE (08:39)
[2017-07-02] MEDS ORDERED: KETAMINE HCL INJ 50 MG/ML 10 ML VIAL ONE (08:40)
[2017-07-02] MEDS ORDERED: EpINEphrine INJ 1MG/ML AMP 1 MG/ML AMP ONE (08:40)
[2017-07-02] MEDS ORDERED: BUPIVACAINE 0.5 % 5 MG/1 ML MPF 30ML VIAL ONE (08:40)
[2017-07-02] MEDS ORDERED: BUPIVACAINE 0.5 % 5 MG/1 ML PF 10ML VIAL ONE ×2 (08:47→10:20)
[2017-07-02] MEDS ORDERED: KETOROLAC TROMETHAMINE 30 MG/ML VIAL IV. PRN (09:00)
[2017-07-02] MEDS ORDERED: MEPERIDINE HCL 25 MG/ML CARP IV PRN (09:00)
[2017-07-02] MEDS ORDERED: EpHEDrine SULFATE INJ 50 MG/ML AMP IV PRN (09:00)
[2017-07-02] MEDS ORDERED: HYDROmorphone INJ 0.5 MG/0.5 ML SYR IV PRN ×2 (09:00→11:00)
[2017-07-02] MEDS ORDERED: ONDANSETRON INJ 2 MG/ML 2 ML VIAL IV PRN ×2 (09:00→11:00)
[2017-07-02] MEDS ORDERED: ATROPINE SULFATE 0.1 MG/ML 5ML SYR IV PRN (09:00)
[2017-07-02] MEDS ORDERED: FENTANYL CITRATE INJ 50 MCG/1 ML 2 ML VIAL IV PRN (09:00)
[2017-07-02] MEDS ORDERED: LABETALOL HCL IV 5 MG/ML 20ML IV PRN (09:00)
[2017-07-02] MEDS ORDERED: CEFAZOLIN SOD 1 GM VIAL IV ONE (09:40)
--- NOTE | 2017-07-02 09:47 | CONSULTATION REPORT ---
DATE OF CONSULTATION: 07/02/2017 CHIEF COMPLAINT: Right hip pain. HISTORY OF PRESENT ILLNESS: The patient is a 61-year-old gentleman who suffered a fall at home last evening after becoming intoxicated. He was brought to the [facility] ED by ambulance for evaluation. He denies any head, neck or back pain. He complains primarily of right hip pain. X-rays revealed a right hip fracture. The patient was admitted by the medical service for medical management and further definitive orthopedic care. An orthopedic consult was asked for. Currently, the patient is lying in bed. He is not in any type of Becerra's traction. He has significant pain with any attempted motion of the right lower extremity. His toes were mobile. He has an abrasion over the right lateral hip region. X-RAYS: X-rays were reviewed and show a nondisplaced right intertrochanteric hip fracture. ASSESSMENT: Nondisplaced right intertrochanteric hip fracture. PLAN: The above was discussed with the patient. I told him we would recommend surgical fixation of his hip to allow him to get out of bed and ambulate quicker, and get back on his feet and back to his work and life quicker. 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 He lives at home with a daughter, son-in-law, and , although there is some concern as he states he was supposed to move by the end of the month. He does not have any significant heart disease, diabetes or other medical issues. He states he does take medicine for high blood pressure and an anti-seizure medicine. [facility] He has no known drug allergies. He has been made n.p.o. We will consult anesthesia and plan on surgical fixation of the right hip fracture as indicated.
[2017-07-02] MEDS: CEFAZOLIN SOD 1 GM VIAL IV ONE (09:55)
--- NOTE | 2017-07-02 10:30 | [facility] Operative Report ---
Operative Report Operative Date July 02, 2017. Pre-Operative Diagnosis Nondisplaced right intertrochanteric fracture Post-Operative Diagnosis Nondisplaced right intertrochanteric fracture Procedure(s) Performed Open Reduction Internal Fixation Intertroch Fracture, Right Surgeon Cancer Program Director Surgeon(s) None Estimated Blood Loss 20 cc Findings As above Specimens None Drains None Anesthesia Type Spinal MAC Complication(s) none Disposition Recovery Room / PACU Indications The patient is a 61-year-old male sustained a fall while intoxicated. He sustained a nondisplaced right intertrochanteric hip fracture. Given the nature of the injury are mended open reduction internal fixation. He wishes to proceed. Description of Procedure Risks benefits and alternatives of surgery including but not limited to infection, DVT, PE, pain, stiffness, need for surgery, damage to blood vessels, damage to nerves or risks of anesthesia, were discussed with the patient and her family and they wished to proceed. Patient was identified in the laterality was confirmed and marked. They received a preoperative antibiotic. The patient was transferred to the fracture table. The operative limb was placed in traction and the well leg was placed in a well leg cary that was well-padded. The arms were well-padded and placed out of the way of the surgical field. I confirmed reduction of the fracture with fluoroscopy with the patient's fracture table and made adjustments to fracture table alignment is necessary to reduce the fracture appropriately. The hip was then prepped and draped in the usual standard manner with ChloraPrep. I made a longitudinal incision proximal to the greater trochanter. I sharply incised through the skin and then used Bovie electrocautery to achieve hemostasis. I incised through the fascia and then bluntly dissected down to the tip of the greater trochanter. Under fluoroscopic guidance I placed a guide pin into the greater trochanter and ensured proper placement on both AP and lateral fluoroscopy views. Once I was satisfied with the position of the guide. I advanced this distally. I then overreamed with the 17 mm proximal reamer. I then placed a Synthes trochanteric fixation nail into position. The size of the nail was a short nail. Then I placed the guide arm onto the nail insertion device made a stab incision more distally and then placed the drill guide for the helical blade. I adjusted the position of the nail as necessary to ensure that the guidepin was center center in the femoral head. Once I was satisfied with the position of the pin advanced it to the appropriate position of the femoral head. I then measured and then reamed the lateral cortex and then reamed down into the femoral head. I then inserted a size [address] I then locked the set screw proximally and then compressed the fracture. Then through a stab incision I placed a interlocking screw through the drill guide. I confirmed hardware placement and maintenance of reduction on AP and lateral fluoroscopy views. Wounds were then thoroughly irrigated. The fascia was closed with interrupted #1 Vicryl suture. Subcutaneous tissues closed with interrupted 2-0 Vicryl suture and the skin with sheela. Sterile dressings applied. All needle and sponge counts were correct at the end of the procedure the patient was transferred to the PACU in stable condition without apparent complication. I attest to the content of the Intraoperative Record and any orders documented therein. Any exceptions are noted below.
--- NOTE | 2017-07-02 10:33 | DIAGNOSTIC IMAGING REPORT ---
R HIP OR FILMS HISTORY: 61 years-old Male RT TROCHNAIL status post placement of trochanteric nail within the right femur COMPARISON: Right hip radiographs 07/01/2017 TECHNIQUE: 4 spot fluoroscopic images of the right hip were obtained utilizing 81.2 seconds fluoroscopy time. FINDINGS: Status post placement of an intratrochanteric nail with medullary lucy fixating the previously described acute intertrochanteric fracture. There is improved satisfactory alignment. Expected postsurgical soft tissue swelling and deep tissue air about the right hip. IMPRESSION: Satisfactory alignment of the acute intertrochanteric fracture status post placement of an intratrochanteric nail with medullary lucy. The above report was generated using voice recognition software. It may contain grammatical, syntax or spelling errors. Electronically signed by: Eron Ceballos M.D. 07/02/2017 10:31 AM Dictated Date/Time: 07/02/2017 10:30 AM
[2017-07-02] MEDS ORDERED: SODIUM CHLORIDE 0.9% 1000ML 1,000 ML IV SCH (12:15)
--- NOTE | 2017-07-02 13:01 | Anesthesiology Progress Note ---
Anesthesia Post Op Note Date & Time July 02, 2017 at 13:00 Vital Signs Pain Intensity: 0 Vital Signs Past 12 Hours Date Time Temp Pulse Resp B/P (MAP) Pulse Ox O2 Delivery O2 Flow Rate FiO2 07/02/17 12:35 36.5 62 18 132/83 (99) 98 Room Air 07/02/17 12:24 Room Air 07/02/17 12:05 36.5 66 18 143/80 (101) 97 Room Air 07/02/17 11:45 72 12 126/84 100 Nasal Cannula 2 07/02/17 11:30 61 14 110/79 100 Nasal Cannula 2 07/02/17 11:15 51 14 114/76 100 Nasal Cannula 2 07/02/17 11:00 57 12 125/82 100 Nasal Cannula 2 07/02/17 10:50 36.8 61 12 109/80 100 Oxymask 5 07/02/17 10:40 62 12 102/75 100 Oxymask 5 07/02/17 10:34 36.6 61 12 112/78 97 Oxymask 5 07/02/17 07:06 36.7 61 18 121/79 (93) 99 Room Air 07/02/17 02:30 96 Room Air 07/02/17 02:30 36.5 77 16 106/72 96 Room Air 07/02/17 01:58 75 16 98/65 96 Room Air Notes Mental Status: alert / awake / arousable, participated in evaluation Pt Amnestic to Procedure: Yes Nausea / Vomiting: adequately controlled Pain: adequately controlled Airway Patency, RR, SpO2: stable & adequate BP & HR: stable & adequate Hydration State: stable & adequate Neuraxial Anesthesia: was administered, sensory block is resolving Anesthetic Complications: no major complications apparent
[2017-07-02] MEDS ORDERED: CEFAZOLIN SOD 1 GM VIAL ONE (13:08)
[2017-07-02] MEDS: FERROUS SULFATE 325 MG TAB PO SCH (14:37)
[2017-07-02] MEDS: GABAPENTIN 400MG Q6H DOSE PO SCH ×2 (14:37→15:00)
[2017-07-02] MEDS: TOPIRAMATE 25 MG TAB PO SCH ×2 (14:38→21:08)
[2017-07-02] MEDS: DILTIAZEM HCL 120 MG EXT REL CAP PO SCH (14:38)
[2017-07-02] MEDS: PANTOprazole SOD 40 MG TAB PO SCH (14:38)
[2017-07-02] MEDS: ASCORBIC ACID 500 MG TAB PO SCH (14:39)
[2017-07-02] MEDS: THIAMINE HCL 100 MG TAB PO SCH (14:39)
[2017-07-02] MEDS: NICOTINE 7 MG/24 HR TDSY TD SCH (14:40)
[2017-07-02] MEDS: CEFAZOLIN IV 1,000 MG in SYRINGE 0 ML IV SCH (16:55)
--- NOTE | 2017-07-02 18:00 | Progress Note ---
Subjective Date of Service: July 02, 2017. Subjective Pt evaluation today including: conversation w/ patient, physical exam, lab review, review of studies, review of inpatient medication list Saw/examined the patient in room 387 Status post nailing done for femur No pain currently No anxiousness, anxiety/agitation; denies nausea/vomiting Problem List Medical Problems: (1) Alcohol abuse Status: Acute (2) Contusion of rib on left side Status: Acute (3) Hip fracture, right Status: Acute (4) Hypokalemia Status: Acute (5) Intoxication Status: Acute (6) Lumbar contusion Status: Acute Review of Systems Constitutional: No fever, No chills, No weakness Respiratory: No shortness of breath Cardiac: No chest pain Musculoskeletal: No joint pain Neurologic: + balance problems Psychiatric: + substance abuse Medications Current Inpatient Medications Medications (Trade) Dose Ordered Sig/Alicia Route Start Time Stop Time Status Last Admin Dose Admin Ascorbic Acid (Vitamin C Tab) 500 mg DAILY PO 07/02/17 09:00 08/01/17 08:59 07/02/17 14:39 500 MG Diltiazem HCl (TIAzac CAP) 240 mg DAILY PO 07/02/17 09:00 08/01/17 08:59 07/02/17 14:38 240 MG Topiramate (Topamax Tab) 50 mg BID PO 07/02/17 09:00 08/01/17 08:59 07/02/17 14:38 50 MG Ferrous Sulfate (Feosol Tab) 325 mg DAILY PO 07/02/17 09:00 08/01/17 08:59 07/02/17 14:37 325 MG Pantoprazole Sodium (Protonix Tab) 40 mg QAM PO 07/02/17 09:00 07/05/17 09:01 07/02/17 14:38 40 MG Lorazepam (Ativan Inj) 1 mg ONE PRN IV 07/02/17 00:45 Thiamine HCl (Vitamin B-1 Tab) 100 mg QAM PO 07/02/17 09:00 08/01/17 08:59 07/02/17 14:39 100 MG Folic Acid (Folvite Tab) 1 mg QAM PO 07/02/17 09:00 08/01/17 08:59 07/02/17 14:37 1 MG Sodium Chloride 1,000 ml @ 100 mls/hr Q10H IV 07/02/17 12:15 07/02/17 22:14 07/02/17 14:40 100 MLS/HR Gabapentin (Neurontin Cap) 400 mg Q8H PO 07/02/17 23:00 07/03/17 15:01 Gabapentin (Neurontin Cap) 400 mg Q12H PO 07/04/17 06:00 07/04/17 18:01 Gabapentin (Neurontin Cap) 400 mg Q24H PO 07/05/17 18:00 07/05/17 18:01 Nicotine (Nicoderm Cq 7 Mg Patch) 1 patch QAM TD 07/02/17 09:00 08/01/17 08:59 07/02/17 14:40 1 PATCH Miscellaneous (Remove Nicoderm Patch) 1 ea HS N/A 07/02/17 21:00 08/01/17 20:59 Cefazolin Sodium 1000 mg/Syringe 7.5 ml @ 1.875 mls/ min Q8H IV 07/02/17 16:00 07/03/17 00:03 07/02/17 16:55 1.875 MLS/MIN Ondansetron HCl (Zofran Inj) 4 mg Q6H PRN IV 07/02/17 11:00 08/01/17 10:59 Oxycodone HCl (Roxicodone Immediate Rel Tab) 5 mg Q4H PRN PO 07/02/17 11:00 07/16/17 10:59 Aspirin (Ecotrin Tab) 81 mg BID PO 07/02/17 21:00 08/01/17 20:59 Hydromorphone HCl (Dilaudid Inj) 0.25 mg Q20M PRN IV 07/02/17 11:00 07/16/17 10:59 Objective Vital Signs Date Time Temp Pulse Resp B/P (MAP) Pulse Ox O2 Delivery O2 Flow Rate FiO2 07/02/17 15:00 36.6 84 16 156/90 (112) 98 Room Air 07/02/17 14:05 36.5 60 18 136/85 (102) 96 Room Air 07/02/17 13:05 36.5 74 18 136/84 (101) 98 Room Air 07/02/17 12:35 36.5 62 18 132/83 (99) 98 Room Air 07/02/17 12:24 Room Air 07/02/17 12:05 97 Room Air 07/02/17 12:05 36.5 66 18 143/80 (101) 97 Room Air 07/02/17 11:45 72 12 126/84 100 Nasal Cannula 2 07/02/17 11:30 61 14 110/79 100 Nasal Cannula 2 07/02/17 11:15 51 14 114/76 100 Nasal Cannula 2 07/02/17 11:00 57 12 125/82 100 Nasal Cannula 2 07/02/17 10:50 36.8 61 12 109/80 100 Oxymask 5 07/02/17 10:40 62 12 102/75 100 Oxymask 5 07/02/17 10:34 36.6 61 12 112/78 97 Oxymask 5 07/02/17 07:06 36.7 61 18 121/79 (93) 99 Room Air 07/02/17 02:30 96 Room Air 07/02/17 02:30 36.5 77 16 106/72 96 Room Air 07/02/17 01:58 75 16 98/65 96 Room Air 07/02/17 00:30 75 18 110/83 96 Room Air 07/02/17 00:03 78 16 110/83 96 Room Air 07/01/17 22:12 68 07/01/17 22:05 100 Room Air 07/01/17 22:05 36.6 64 14 145/93 100 Room Air Physical Exam General Appearance: no apparent distress Respiratory/Chest: lungs clear, normal breath sounds, no respiratory distress, no accessory muscle use Cardiovascular: regular rate, rhythm, no edema, no murmur Laboratory Results Last 24 Hours Test 07/01/17 22:21 07/02/17 05:55 White Blood Count 7.45 K/uL 8.40 K/uL Red Blood Count 4.11 M/uL 3.77 M/uL Hemoglobin 14.1 g/dL 12.9 g/dL Hematocrit 40.6 % 37.3 % Mean Corpuscular Volume 98.8 fL 98.9 fL Mean Corpuscular Hemoglobin 34.3 pg 34.2 pg Mean Corpuscular Hemoglobin Concent 34.7 g/dl 34.6 g/dl Platelet Count 260 K/uL 243 K/uL Mean Platelet Volume 9.4 fL 9.4 fL Neutrophils (%) (Auto) 53.5 % Lymphocytes (%) (Auto) 32.1 % Monocytes (%) (Auto) 8.9 % Eosinophils (%) (Auto) 3.0 % Basophils (%) (Auto) 1.7 % Neutrophils # (Auto) 3.99 K/uL Lymphocytes # (Auto) 2.39 K/uL Monocytes # (Auto) 0.66 K/uL Eosinophils # (Auto) 0.22 K/uL Basophils # (Auto) 0.13 K/uL RDW Standard Deviation 46.4 fL 46.9 fL RDW Coefficient of Variation 12.8 % 13.0 % Immature Granulocyte % (Auto) 0.8 % Immature Granulocyte # (Auto) 0.06 K/uL Prothrombin Time 10.0 SECONDS Prothromb Time International Ratio 1.0 Activated Partial Thromboplast Time 25.7 SECONDS Partial Thromboplastin Ratio 1.0 Sodium Level 138 mmol/L 141 mmol/L Potassium Level 3.3 mmol/L 4.1 mmol/L Chloride Level 108 mmol/L 115 mmol/L Carbon Dioxide Level 21 mmol/L 21 mmol/L Anion Gap 9.0 mmol/L 5.0 mmol/L Blood Urea Nitrogen 6 mg/dl 4 mg/dl Creatinine 0.84 mg/dl 0.63 mg/dl Est Creatinine Clear Calc Drug Dose 80.9 ml/min 107.8 ml/min Estimated GFR () 109.5 123.3 Estimated GFR (Non- 94.5 106.4 BUN/Creatinine Ratio 6.8 6.9 Random Glucose 89 mg/dl 94 mg/dl Calcium Level 8.2 mg/dl 7.3 mg/dl Total Bilirubin 0.3 mg/dl Direct Bilirubin 0.1 mg/dl Aspartate Amino Transf (AST/SGOT) 20 U/L Alanine Aminotransferase (ALT/SGPT) 22 U/L Alkaline Phosphatase 90 U/L Total Protein 7.6 gm/dl Albumin 4.3 gm/dl Ethyl Alcohol mg/dL 364.0 mg/dl Magnesium Level 2.1 mg/dl Vitamin B12 Level 231 pg/mL Folate > 24.00 ng/mL Assessment and Plan Nondisplaced Intertrochanteric Fracture, R Femur - s/p intertrochanteric nailing - pain is controlled - monitor vitals, labs - further input as per ortho Alcohol Abuse - gabapentin and banana bag - monitor for signs of withdrawal Ambulatory Dysfunction - PT/OT - may need placement HTN - BP stable Hypokalemia - monitor electrolytes DVT ppx - SCDs FULL CODE
[2017-07-02] MEDS: GABAPENTIN 400MG Q8H DOSE PO SCH (21:08)
[2017-07-02] MEDS: ASPIRIN 81 MG ECTAB PO SCH (21:09)
[2017-07-02] MEDS: OXYCODONE HCL IR 5 MG TAB (IMMEDIATE RELEASE) PO PRN (21:13)
[2017-07-03] VITALS (8 sets, daily range): BP systolic 101–136; BP diastolic 62–77; PULSE 58–68; TEMP 36.9–37.9; O2SAT 96–99
[2017-07-03] MEDS: CEFAZOLIN IV 1,000 MG in SYRINGE 0 ML IV SCH (00:12)
[2017-07-03 06:06] LABS: HEMATOCRIT 33.1 % (42-52); HEMOGLOBIN 11.3 g/dL (14.0-18.0); MEAN CELL VOLUME 99.1 fL (80-100); MEAN CORPUSCULAR HEMOGLOBIN 33.8 pg (25-34); MEAN CORPUSCULAR HGB CONC 34.1 g/dl (32-36); MEAN PLATELET VOLUME 9.2 fL (7.4-10.4); PLATELET COUNT 209 K/uL (130-400); RED CELL DISTRIBUTION WIDTH SD 47.1 fL (36.4-46.3); WHITE BLOOD COUNT 9.57 K/uL (4.8-10.8)
[2017-07-03 06:33] LABS: CALCIUM 7.6 mg/dl (8.5-10.1); CREATININE 0.59 mg/dl (0.60-1.40); POTASSIUM 3.7 mmol/L (3.5-5.1)
[2017-07-03] MEDS: GABAPENTIN 400MG Q8H DOSE PO SCH ×2 (06:45→14:39)
--- NOTE | 2017-07-03 08:24 | Orthopedic Progress Note ---
Orthopedic Progress Note Date of Service July 03, 2017. Subjective Post OP Day: 1 Reports: feeling well, Denies: complaints Objective Right lower extremity: Dressings are clean dry and intact. Toes are mobile. Refill less than 2 seconds. Capsular soft. Negative Homans. Date Time Temp Pulse Resp B/P (MAP) Pulse Ox O2 Delivery O2 Flow Rate FiO2 07/03/17 07:10 37.1 58 16 136/77 (96) 96 Room Air 07/03/17 03:34 37.2 68 16 121/76 (91) 96 Room Air 07/02/17 23:40 96 Room Air 2.0 07/02/17 23:20 37.2 68 16 118/70 (86) 96 Room Air 07/02/17 19:39 36.7 88 16 133/89 (104) 96 Room Air 07/02/17 16:30 Room Air 07/02/17 15:00 36.6 84 16 156/90 (112) 98 Room Air 07/02/17 14:05 36.5 60 18 136/85 (102) 96 Room Air 07/02/17 13:05 36.5 74 18 136/84 (101) 98 Room Air 07/02/17 12:35 36.5 62 18 132/83 (99) 98 Room Air 07/02/17 12:24 Room Air 07/02/17 12:05 97 Room Air 07/02/17 12:05 36.5 66 18 143/80 (101) 97 Room Air 07/02/17 11:45 72 12 126/84 100 Nasal Cannula 2 07/02/17 11:30 61 14 110/79 100 Nasal Cannula 2 07/02/17 11:15 51 14 114/76 100 Nasal Cannula 2 07/02/17 11:00 57 12 125/82 100 Nasal Cannula 2 07/02/17 10:50 36.8 61 12 109/80 100 Oxymask 5 07/02/17 10:40 62 12 102/75 100 Oxymask 5 07/02/17 10:34 36.6 61 12 112/78 97 Oxymask 5 Laboratory Results 24 Hours: Test 07/03/17 05:49 Hematocrit 33.1 % Hemoglobin 11.3 g/dL Assessment & Plan Assessment: Postop day #1 status post right hip troch nail Plan: Aspirin for DVT prophylaxis Weightbearing as tolerated PT/OT Pain control The patient may be discharged from an orthopedic standpoint as soon as he is mobilized and his pain is controlled.
[2017-07-03] MEDS: DILTIAZEM HCL 120 MG EXT REL CAP PO SCH (09:10)
[2017-07-03] MEDS: THIAMINE HCL 100 MG TAB PO SCH (09:10)
[2017-07-03] MEDS: FERROUS SULFATE 325 MG TAB PO SCH (09:10)
[2017-07-03] MEDS: ASCORBIC ACID 500 MG TAB PO SCH (09:10)
[2017-07-03] MEDS: NICOTINE 7 MG/24 HR TDSY TD SCH (09:10)
[2017-07-03] MEDS: TOPIRAMATE 25 MG TAB PO SCH ×2 (09:10→21:20)
[2017-07-03] MEDS: PANTOprazole SOD 40 MG TAB PO SCH (09:10)
[2017-07-03] MEDS: ASPIRIN 81 MG ECTAB PO SCH ×2 (09:10→21:19)
--- NOTE | 2017-07-03 15:04 | Progress Note ---
Subjective Date of Service: July 03, 2017. Subjective Pt evaluation today including: conversation w/ patient, physical exam, lab review, review of studies, review of inpatient medication list Saw/examined the patient in room 387 He's doing well, no problems/issues at this time Has been ambulating Sore hip, but pain controlled with medications Problem List Medical Problems: (1) Alcohol abuse Status: Acute (2) Contusion of rib on left side Status: Acute (3) Hip fracture, right Status: Acute (4) Hypokalemia Status: Acute (5) Intoxication Status: Acute (6) Lumbar contusion Status: Acute Review of Systems Constitutional: + weakness, No fever, No chills Respiratory: No cough, No sputum, No shortness of breath Cardiac: No chest pain Neurologic: + balance problems Medications Current Inpatient Medications Medications (Trade) Dose Ordered Sig/Alicia Route Start Time Stop Time Status Last Admin Dose Admin Ascorbic Acid (Vitamin C Tab) 500 mg DAILY PO 07/02/17 09:00 08/01/17 08:59 07/03/17 09:10 500 MG Diltiazem HCl (TIAzac CAP) 240 mg DAILY PO 07/02/17 09:00 08/01/17 08:59 07/03/17 09:10 240 MG Topiramate (Topamax Tab) 50 mg BID PO 07/02/17 09:00 08/01/17 08:59 07/03/17 09:10 50 MG Ferrous Sulfate (Feosol Tab) 325 mg DAILY PO 07/02/17 09:00 08/01/17 08:59 07/03/17 09:10 325 MG Pantoprazole Sodium (Protonix Tab) 40 mg QAM PO 07/02/17 09:00 07/05/17 09:01 07/03/17 09:10 40 MG Lorazepam (Ativan Inj) 1 mg ONE PRN IV 07/02/17 00:45 Thiamine HCl (Vitamin B-1 Tab) 100 mg QAM PO 07/02/17 09:00 08/01/17 08:59 07/03/17 09:10 100 MG Folic Acid (Folvite Tab) 1 mg QAM PO 07/02/17 09:00 08/01/17 08:59 07/03/17 09:10 1 MG Gabapentin (Neurontin Cap) 400 mg Q12H PO 07/04/17 06:00 5/14/18 18:01 Gabapentin (Neurontin Cap) 400 mg Q24H PO 07/05/17 18:00 07/05/17 18:01 Nicotine (Nicoderm Cq 7 Mg Patch) 1 patch QAM TD 07/02/17 09:00 08/01/17 08:59 07/03/17 09:10 1 PATCH Miscellaneous (Remove Nicoderm Patch) 1 ea HS N/A 07/02/17 21:00 08/01/17 20:59 07/02/17 21:07 1 EA Ondansetron HCl (Zofran Inj) 4 mg Q6H PRN IV 07/02/17 11:00 08/01/17 10:59 Oxycodone HCl (Roxicodone Immediate Rel Tab) 5 mg Q4H PRN PO 07/02/17 11:00 07/16/17 10:59 07/02/17 21:13 5 MG Aspirin (Ecotrin Tab) 81 mg BID PO 07/02/17 21:00 08/01/17 20:59 07/03/17 09:10 81 MG Hydromorphone HCl (Dilaudid Inj) 0.25 mg Q20M PRN IV 07/02/17 11:00 07/16/17 10:59 Objective Vital Signs Date Time Temp Pulse Resp B/P (MAP) Pulse Ox O2 Delivery O2 Flow Rate FiO2 07/03/17 14:55 36.9 68 16 119/75 (90) 98 Room Air 07/03/17 11:50 60 96 07/03/17 10:57 37.0 68 16 106/68 (81) 98 Room Air 07/03/17 07:40 Room Air 07/03/17 07:10 37.1 58 16 136/77 (96) 96 Room Air 07/03/17 03:34 37.2 68 16 121/76 (91) 96 Room Air 07/02/17 23:40 96 Room Air 2.0 07/02/17 23:20 37.2 68 16 118/70 (86) 96 Room Air 07/02/17 19:39 36.7 88 16 133/89 (104) 96 Room Air 07/02/17 16:30 Room Air Physical Exam General Appearance: no apparent distress Respiratory/Chest: chest non-tender, lungs clear, normal breath sounds, no respiratory distress, no accessory muscle use Cardiovascular: regular rate, rhythm, no edema, no murmur Extremities: non-tender, normal inspection, no pedal edema Neurologic/Psychiatric: no motor/sensory deficits, alert, normal mood/affect Laboratory Results Last 24 Hours Test 07/02/17 19:01 07/03/17 05:49 Urine Color YELLOW Urine Appearance CLEAR Urine pH 5.5 Urine Specific Marshall 1.017 Urine Protein NEG Urine Glucose (UA) NEG Urine Ketones NEG Urine Occult Blood NEG Urine Nitrite NEG Urine Bilirubin NEG Urine Urobilinogen NEG Urine Leukocyte Esterase NEG White Blood Count 9.57 K/uL Red Blood Count 3.34 M/uL Hemoglobin 11.3 g/dL Hematocrit 33.1 % Mean Corpuscular Volume 99.1 fL Mean Corpuscular Hemoglobin 33.8 pg Mean Corpuscular Hemoglobin Concent 34.1 g/dl RDW Standard Deviation 47.1 fL RDW Coefficient of Variation 13.0 % Platelet Count 209 K/uL Mean Platelet Volume 9.2 fL Sodium Level 138 mmol/L Potassium Level 3.7 mmol/L Chloride Level 108 mmol/L Carbon Dioxide Level 23 mmol/L Anion Gap 7.0 mmol/L Blood Urea Nitrogen 8 mg/dl Creatinine 0.59 mg/dl Est Creatinine Clear Calc Drug Dose 115.1 ml/min Estimated GFR () 126.6 Estimated GFR (Non- 109.3 BUN/Creatinine Ratio 14.3 Random Glucose 98 mg/dl Calcium Level 7.6 mg/dl Assessment and Plan Nondisplaced Intertrochanteric Fracture, R Femur 07/03 - continue PT/OT - SNF vs. home health - likely d/c in AM - continue aspirin for DVT ppx as per ortho - pain is controlled 07/02 - s/p intertrochanteric nailing - pain is controlled - monitor vitals, labs - further input as per ortho Alcohol Abuse - gabapentin and banana bag - monitor for signs of withdrawal Ambulatory Dysfunction - PT/OT - may need placement HTN - BP stable Hypokalemia - monitor electrolytes DVT ppx - SCDs FULL CODE
[2017-07-03] MEDS: OXYCODONE HCL IR 5 MG TAB (IMMEDIATE RELEASE) PO PRN (21:19)
[2017-07-04 00:05] VITALS: O2SAT 96
[2017-07-04] MEDS: GABAPENTIN 400MG Q12H DOSE PO SCH ×2 (05:54→17:41)
[2017-07-04 06:31] LABS: HEMATOCRIT 31.3 % (42-52); HEMOGLOBIN 10.7 g/dL (14.0-18.0); MEAN CELL VOLUME 99.4 fL (80-100); MEAN CORPUSCULAR HGB CONC 34.2 g/dl (32-36); MEAN PLATELET VOLUME 9.6 fL (7.4-10.4); PLATELET COUNT 197 K/uL (130-400); RED CELL DISTRIBUTION WIDTH CV 12.8 % (11.5-14.5); RED CELL DISTRIBUTION WIDTH SD 46.8 fL (36.4-46.3); WHITE BLOOD COUNT 9.53 K/uL (4.8-10.8)
[2017-07-04 06:51] LABS: CALCIUM 7.9 mg/dl (8.5-10.1); CREATININE 0.72 mg/dl (0.60-1.40); POTASSIUM 3.4 mmol/L (3.5-5.1)
[2017-07-04 07:00] VITALS: BP 125/72; PULSE 64; TEMP 36.6; O2SAT 98
[2017-07-04] MEDS: ASCORBIC ACID 500 MG TAB PO SCH (08:12)
[2017-07-04] MEDS: DILTIAZEM HCL 120 MG EXT REL CAP PO SCH (08:12)
[2017-07-04] MEDS: ASPIRIN 81 MG ECTAB PO SCH ×2 (08:12→20:48)
[2017-07-04] MEDS: THIAMINE HCL 100 MG TAB PO SCH (08:13)
[2017-07-04] MEDS: FERROUS SULFATE 325 MG TAB PO SCH (08:13)
[2017-07-04] MEDS: NICOTINE 7 MG/24 HR TDSY TD SCH (08:13)
[2017-07-04] MEDS: TOPIRAMATE 25 MG TAB PO SCH ×2 (08:13→20:49)
[2017-07-04] MEDS: PANTOprazole SOD 40 MG TAB PO SCH (08:14)
[2017-07-04 08:30] VITALS: O2SAT 96
--- NOTE | 2017-07-04 08:58 | Orthopedic Progress Note ---
Orthopedic Progress Note Date of Service July 04, 2017. Subjective Post OP Day: 2 Reports: feeling well, Denies: chest pain, SOB, nausea / vomiting, light headedness, calf pain Objective calves soft nontender, N/V intact, hip located, dressing C/D/I, A&O x3, toes mobile Date Time Temp Pulse Resp B/P (MAP) Pulse Ox O2 Delivery O2 Flow Rate FiO2 07/04/17 08:30 96 Room Air 07/04/17 07:00 36.6 64 16 125/72 (89) 98 Room Air 07/04/17 00:05 96 Room Air 2.0 07/03/17 22:55 37.4 62 16 127/75 (92) 99 Room Air 07/03/17 22:15 37.4 07/03/17 18:55 37.9 68 18 101/62 (75) 98 Room Air 07/03/17 16:00 Room Air 07/03/17 14:55 36.9 68 16 119/75 (90) 98 Room Air 07/03/17 11:50 60 96 07/03/17 10:57 37.0 68 16 106/68 (81) 98 Room Air Laboratory Results 24 Hours: Test 07/04/17 06:03 Hematocrit 31.3 % Hemoglobin 10.7 g/dL Assessment & Plan Assessment: Postop day #2 status post right hip troch nail Plan: Aspirin for DVT prophylaxis Weightbearing as tolerated PT/OT Pain control The patient may be discharged from an orthopedic standpoint as soon as he is mobilized and his pain is controlled. DISCUSSED HH VS INPT REHAB FACILITY. STATES HIS IS NOT IN GOOD HEALTH. WILL DISCUSS WITH CM. ORTHOPEDICALLY STABLE FOR TRANSFER.
--- NOTE | 2017-07-04 09:00 | Consultant Recommendations ---
General Maintenance Helper Recommendations Date of Service July 04, 2017. General Maintenance Helper Recommendations SP RIGHT TROCH NAIL -WBAT WITH WALKER -ASA 81MG BID X 4 WEEKS -CONTINUE KNEE HIGH TEDS 20HR/DAY X 2-4 WEEKS DEPENDING ON MOBILITY - FOLLOW UP WITH DR. GAUTHIER IN 10-14 DAYS. [phone] -DRESSING CHANGE EVERY DAY IF THE WOUND CONTINUES TO DRAIN. IF DRY, MAY CHANGE THE DRESSING EVERY OTHER DAY.
[2017-07-04] MEDS ORDERED: POTASSIUM CHLORIDE 10 MEQ TABCR PO STA (13:59)
--- NOTE | 2017-07-04 14:17 | Progress Note ---
Subjective Date of Service: July 04, 2017. Subjective Pt evaluation today including: conversation w/ patient, physical exam, lab review, review of studies, review of inpatient medication list Saw/examined the patient in room 387 Doing well, pain controlled, ambulating well States he does not have a ride to get home Denies any withdrawal symptoms, no anxiety, anxiousness, no nausea/vomiting Problem List Medical Problems: (1) Alcohol abuse Status: Acute (2) Contusion of rib on left side Status: Acute (3) Hip fracture, right Status: Acute (4) Hypokalemia Status: Acute (5) Intoxication Status: Acute (6) Lumbar contusion Status: Acute Review of Systems Constitutional: No fever, No chills, No weakness Respiratory: No cough, No sputum, No shortness of breath Cardiac: No chest pain, No edema, No palpitations Abdomen: No nausea, No vomiting, No diarrhea Musculoskeletal: No joint pain Medications Current Inpatient Medications Medications (Trade) Dose Ordered Sig/Alicia Route Start Time Stop Time Status Last Admin Dose Admin Ascorbic Acid (Vitamin C Tab) 500 mg DAILY PO 07/02/17 09:00 08/01/17 08:59 07/04/17 08:12 500 MG Diltiazem HCl (TIAzac CAP) 240 mg DAILY PO 07/02/17 09:00 08/01/17 08:59 07/04/17 08:12 240 MG Topiramate (Topamax Tab) 50 mg BID PO 07/02/17 09:00 08/01/17 08:59 07/04/17 08:13 50 MG Ferrous Sulfate (Feosol Tab) 325 mg DAILY PO 07/02/17 09:00 08/01/17 08:59 07/04/17 08:13 325 MG Pantoprazole Sodium (Protonix Tab) 40 mg QAM PO 07/02/17 09:00 07/05/17 09:01 07/04/17 08:14 40 MG Lorazepam (Ativan Inj) 1 mg ONE PRN IV 07/02/17 00:45 Thiamine HCl (Vitamin B-1 Tab) 100 mg QAM PO 07/02/17 09:00 08/01/17 08:59 07/04/17 08:13 100 MG Folic Acid (Folvite Tab) 1 mg QAM PO 07/02/17 09:00 08/01/17 08:59 07/04/17 08:12 1 MG Gabapentin (Neurontin Cap) 400 mg Q12H PO 07/04/17 06:00 07/04/17 18:01 07/04/17 05:54 400 MG Gabapentin (Neurontin Cap) 400 mg Q24H PO 07/05/17 18:00 07/05/17 18:01 Nicotine (Nicoderm Cq 7 Mg Patch) 1 patch QAM TD 07/02/17 09:00 08/01/17 08:59 07/04/17 08:13 1 PATCH Miscellaneous (Remove Nicoderm Patch) 1 ea HS N/A 07/02/17 21:00 08/01/17 20:59 07/03/17 21:20 1 EA Ondansetron HCl (Zofran Inj) 4 mg Q6H PRN IV 07/02/17 11:00 08/01/17 10:59 Oxycodone HCl (Roxicodone Immediate Rel Tab) 5 mg Q4H PRN PO 07/02/17 11:00 07/16/17 10:59 07/03/17 21:19 5 MG Aspirin (Ecotrin Tab) 81 mg BID PO 07/02/17 21:00 08/01/17 20:59 07/04/17 08:12 81 MG Hydromorphone HCl (Dilaudid Inj) 0.25 mg Q20M PRN IV 07/02/17 11:00 07/16/17 10:59 Objective Vital Signs Date Time Temp Pulse Resp B/P (MAP) Pulse Ox O2 Delivery O2 Flow Rate FiO2 07/04/17 08:30 96 Room Air 07/04/17 07:00 36.6 64 16 125/72 (89) 98 Room Air 07/04/17 00:05 96 Room Air 2.0 07/03/17 22:55 37.4 62 16 127/75 (92) 99 Room Air 07/03/17 22:15 37.4 07/03/17 18:55 37.9 68 18 101/62 (75) 98 Room Air 07/03/17 16:00 Room Air 07/03/17 14:55 36.9 68 16 119/75 (90) 98 Room Air Physical Exam General Appearance: no apparent distress Respiratory/Chest: chest non-tender, lungs clear, normal breath sounds, no respiratory distress, no accessory muscle use Cardiovascular: regular rate, rhythm, no edema, no murmur Abdomen: normal bowel sounds, non tender, soft Extremities: normal inspection, no pedal edema Neurologic/Psychiatric: no motor/sensory deficits, alert, normal mood/affect Laboratory Results Last 24 Hours Test 07/04/17 06:03 White Blood Count 9.53 K/uL Red Blood Count 3.15 M/uL Hemoglobin 10.7 g/dL Hematocrit 31.3 % Mean Corpuscular Volume 99.4 fL Mean Corpuscular Hemoglobin 34.0 pg Mean Corpuscular Hemoglobin Concent 34.2 g/dl RDW Standard Deviation 46.8 fL RDW Coefficient of Variation 12.8 % Platelet Count 197 K/uL Mean Platelet Volume 9.6 fL Sodium Level 139 mmol/L Potassium Level 3.4 mmol/L Chloride Level 109 mmol/L Carbon Dioxide Level 23 mmol/L Anion Gap 7.0 mmol/L Blood Urea Nitrogen 11 mg/dl Creatinine 0.72 mg/dl Est Creatinine Clear Calc Drug Dose 94.3 ml/min Estimated GFR () 116.7 Estimated GFR (Non- 100.7 BUN/Creatinine Ratio 15.7 Random Glucose 105 mg/dl Calcium Level 7.9 mg/dl Assessment and Plan Nondisplaced Intertrochanteric Fracture, R Femur 07/04 - patient is doing well - PT/OT recommend short term acute rehab, patient refusing at this time - agreeable to home health/home PT - will d/c to home on 07/05 07/03 - continue PT/OT - SNF vs. home health - likely d/c in AM - continue aspirin for DVT ppx as per ortho - pain is controlled 07/02 - s/p intertrochanteric nailing - pain is controlled - monitor vitals, labs - further input as per ortho Alcohol Abuse - gabapentin and banana bag - monitor for signs of withdrawal Ambulatory Dysfunction - PT/OT - may need placement HTN - BP stable Hypokalemia - monitor electrolytes DVT ppx - SCDs FULL CODE
[2017-07-04 15:00] VITALS: BP 108/58; PULSE 66; TEMP 37.4; O2SAT 98
[2017-07-04 16:03] VITALS: O2SAT 98
[2017-07-04 23:14] VITALS: BP 119/68; PULSE 62; TEMP 37.5; O2SAT 97
[2017-07-05 07:36] VITALS: BP 110/70; PULSE 58; TEMP 37.3; O2SAT 98
--- NOTE | 2017-07-05 08:13 | Orthopedic Progress Note ---
Orthopedic Progress Note Date of Service July 05, 2017. Subjective Post OP Day: 3 Reports: feeling well Additional Notes: Mild soreness in the right thigh. No other complaints this AM. Hoping to go home with home health. Objective calves soft nontender, N/V intact, dressing C/D/I, A&O x3, toes mobile Date Time Temp Pulse Resp B/P (MAP) Pulse Ox O2 Delivery O2 Flow Rate FiO2 07/05/17 07:36 37.3 58 18 110/70 (83) 98 Room Air 07/04/17 23:45 Room Air 07/04/17 23:14 37.5 62 16 119/68 (85) 97 Room Air 07/04/17 16:03 98 Room Air 07/04/17 15:00 37.4 66 18 108/58 (75) 98 Room Air 07/04/17 08:30 96 Room Air Assessment & Plan Assessment: Postop day #3 status post right hip troch nail Plan: Aspirin for DVT prophylaxis Weightbearing as tolerated PT/OT The patient may be discharged from an orthopedic standpoint as soon as he is mobilized and his pain is controlled. DISCUSSED HH VS INPT REHAB FACILITY. STATES HIS IS NOT IN GOOD HEALTH. WILL DISCUSS WITH CM. ORTHOPEDICALLY STABLE FOR TRANSFER. Inhouse Planning Pain Management: Dilaudid, Oxy IR DVT Prophylaxis: TEDs, SCDs, ASA Discharge Planning Discharge Planning: home with home health
[2017-07-05] MEDS: THIAMINE HCL 100 MG TAB PO SCH (08:28)
[2017-07-05] MEDS: ASPIRIN 81 MG ECTAB PO SCH (08:28)
[2017-07-05] MEDS: PANTOprazole SOD 40 MG TAB PO SCH (08:28)
[2017-07-05] MEDS: ASCORBIC ACID 500 MG TAB PO SCH (08:28)
[2017-07-05] MEDS: DILTIAZEM HCL 120 MG EXT REL CAP PO SCH (08:28)
[2017-07-05] MEDS: FERROUS SULFATE 325 MG TAB PO SCH (08:28)
[2017-07-05] MEDS: TOPIRAMATE 25 MG TAB PO SCH (08:28)
[2017-07-05] MEDS: NICOTINE 7 MG/24 HR TDSY TD SCH (08:29)
--- NOTE | 2017-07-05 10:49 | Progress Note ---
Subjective Date of Service: July 05, 2017. Subjective Pt evaluation today including: conversation w/ patient, physical exam, lab review, review of studies, review of inpatient medication list Saw/examined the patient in room 387 He's doing well, pain is controlled good PO intake, no fevers/chills Eager to go home Problem List Medical Problems: (1) Alcohol abuse Status: Acute (2) Contusion of rib on left side Status: Acute (3) Hip fracture, right Status: Acute (4) Hypokalemia Status: Acute (5) Intoxication Status: Acute (6) Lumbar contusion Status: Acute Review of Systems Constitutional: No fever, No chills, No weakness Abdomen: No pain, No nausea, No vomiting, No diarrhea Musculoskeletal: No joint pain Psychiatric: No depression symptoms, No anxiety, No insomnia Medications Current Inpatient Medications Medications (Trade) Dose Ordered Sig/Alicia Route Start Time Stop Time Status Last Admin Dose Admin Ascorbic Acid (Vitamin C Tab) 500 mg DAILY PO 07/02/17 09:00 08/01/17 08:59 07/05/17 08:28 500 MG Diltiazem HCl (TIAzac CAP) 240 mg DAILY PO 07/02/17 09:00 08/01/17 08:59 07/05/17 08:28 240 MG Topiramate (Topamax Tab) 50 mg BID PO 07/02/17 09:00 08/01/17 08:59 07/05/17 08:28 50 MG Ferrous Sulfate (Feosol Tab) 325 mg DAILY PO 07/02/17 09:00 08/01/17 08:59 07/05/17 08:28 325 MG Lorazepam (Ativan Inj) 1 mg ONE PRN IV 07/02/17 00:45 Thiamine HCl (Vitamin B-1 Tab) 100 mg QAM PO 07/02/17 09:00 08/01/17 08:59 07/05/17 08:28 100 MG Folic Acid (Folvite Tab) 1 mg QAM PO 07/02/17 09:00 08/01/17 08:59 07/05/17 08:28 1 MG Gabapentin (Neurontin Cap) 400 mg Q24H PO 07/05/17 18:00 07/05/17 18:01 Nicotine (Nicoderm Cq 7 Mg Patch) 1 patch QAM TD 07/02/17 09:00 08/01/17 08:59 07/05/17 08:29 1 PATCH Miscellaneous (Remove Nicoderm Patch) 1 ea HS N/A 07/02/17 21:00 08/01/17 20:59 07/04/17 20:49 1 EA Ondansetron HCl (Zofran Inj) 4 mg Q6H PRN IV 07/02/17 11:00 08/01/17 10:59 Oxycodone HCl (Roxicodone Immediate Rel Tab) 5 mg Q4H PRN PO 07/02/17 11:00 07/16/17 10:59 07/03/17 21:19 5 MG Aspirin (Ecotrin Tab) 81 mg BID PO 07/02/17 21:00 08/01/17 20:59 07/05/17 08:28 81 MG Hydromorphone HCl (Dilaudid Inj) 0.25 mg Q20M PRN IV 07/02/17 11:00 07/16/17 10:59 Objective Vital Signs Date Time Temp Pulse Resp B/P (MAP) Pulse Ox O2 Delivery O2 Flow Rate FiO2 07/05/17 08:10 Room Air 07/05/17 07:36 37.3 58 18 110/70 (83) 98 Room Air 07/04/17 23:45 Room Air 07/04/17 23:14 37.5 62 16 119/68 (85) 97 Room Air 07/04/17 16:03 98 Room Air 07/04/17 15:00 37.4 66 18 108/58 (75) 98 Room Air Physical Exam General Appearance: WD/WN, no apparent distress Respiratory/Chest: chest non-tender, lungs clear, normal breath sounds, no respiratory distress, no accessory muscle use Cardiovascular: regular rate, rhythm, no edema, no murmur Extremities: normal range of motion, non-tender, normal inspection, no pedal edema, no calf tenderness Assessment and Plan Nondisplaced Intertrochanteric Fracture, R Femur 07/05 - patient would like to go home today - will need home health - aspirin for DVT ppx 07/04 - patient is doing well - PT/OT recommend short term acute rehab, patient refusing at this time - agreeable to home health/home PT - will d/c to home on 07/05 07/03 - continue PT/OT - SNF vs. home health - likely d/c in AM - continue aspirin for DVT ppx as per ortho - pain is controlled 07/02 - s/p intertrochanteric nailing - pain is controlled - monitor vitals, labs - further input as per ortho Alcohol Abuse - gabapentin and banana bag - monitor for signs of withdrawal Ambulatory Dysfunction - PT/OT - may need placement HTN - BP stable Hypokalemia - monitor electrolytes DVT ppx - SCDs FULL CODE
[2017-07-05] MEDS ORDERED: FLV1 PO ×2 (10:58→11:17)
[2017-07-05] MEDS ORDERED: NICO7DIS7 TD ×2 (10:58→11:17)
[2017-07-05] MEDS ORDERED: ASPI-320 PO ×2 (10:58→11:17)
[2017-07-05] MEDS ORDERED: MULTTAB58 PO (10:58)
[2017-07-05] MEDS ORDERED: THM100 PO ×2 (10:58→11:17)
--- NOTE | 2017-07-05 11:05 | Discharge Instructions ---
Discharge Instructions Date of Service July 05, 2017. Admission Reason for Admission: Alcohol Intoxication Discharge Discharge Diagnosis / Problem: Alcohol Intoxication, Fall, Nondisplaced Fracture of Femur Discharge Goals Goal(s): Decrease discomfort, Improve function, Diagnostic testing, Therapeutic intervention Activity Recommendations Activity Limitations: resume your previous activity . Instructions / Follow-Up Instructions / Follow-Up Please follow-up with your primary care physician * You will need to take aspirin 81mg twice a day for the next four weeks to prevent blood clots from forming * Use PATRIZIA stockings * Follow-up with Dr. Scanlon in 10-14 days - call to make an appointment * Use a walker as needed * You will be discharged with home health and home physical therapy Current Hospital Diet Patient's current hospital diet: AHA Diet (Heart Healthy) Discharge Diet Recommended Diet: AHA Diet (Heart Healthy) Procedures Procedures Performed: Open Reduction Internal Fixation Intertroch Fracture, Right Pending Studies Studies pending at discharge: no Medical Emergencies . Who to Call and When: Medical Emergencies: If at any time you feel your situation is an emergency, please call 911 immediately. . Non-Emergent Contact Non-Emergency issues call your: Primary Care Provider, Surgeon . . "Provider Documentation" section prepared by Tremaine Jiménez. . Dental Laboratory Supervisor Recommendations Dental Laboratory Supervisor Recommendations: SP RIGHT TROCH NAIL -WBAT WITH WALKER -ASA 81MG BID X 4 WEEKS -CONTINUE KNEE HIGH TEDS 20HR/DAY X 2-4 WEEKS DEPENDING ON MOBILITY - FOLLOW UP WITH DR. SCANLON IN 10-14 DAYS. -DRESSING CHANGE EVERY DAY IF THE WOUND CONTINUES TO DRAIN. IF DRY, MAY CHANGE THE DRESSING EVERY OTHER DAY.
--- NOTE | 2017-07-05 11:07 | Discharge Summary ---
Discharge Summary Date of Service July 05, 2017. Discharge Summary Admission Date: July 02, 2017 at 00:37 Discharge Date: July 05, 2017 Discharge Disposition: Home with services Principal Diagnosis: Nondisplaced Intertrochanteric Fracture, R Femur Alcohol Intoxication Ambulatory Dysfunction HTN Hypokalemia - resolved Medication Reconciliation New Medications: Multiple Vitamin (Multivitamin) 1 Tab Tab 1 TAB PO DAILY for 90 Days, #90 TAB 3 Refills Aspirin (Aspirin EC Low Dose) 81 Mg Ectab 81 MG PO BID for 30 Days, #60 TABS Folic Acid (Folic Acid) 1 Mg Tab 1 MG PO QAM for 30 Days, #30 TAB Nicotine (Nicoderm Cq 7 Mg Patch) 7 Mg/24 Hr Dis 1 PATCH TD QAM for 30 Days, #1 BOX Thiamine HCl (Vitamin B-1) 100 Mg Tab 100 MG PO QAM for 30 Days, #30 TAB Continued Medications: Ascorbic Acid (Ascorbic Acid) 500 Mg Tab 500 MG PO DAILY, TAB Diltiazem Hcl Ext Rel (Tiazac) 240 Mg Capcr 240 MG PO DAILY, CAP Ferrous Sulfate (Ferrous Sulfate) 325 Mg Tab 325 MG PO DAILY Topiramate (Topamax) 50 Mg Tab 50 MG PO BID Admission Information HPI (per Admitting provider): 61 years old male with past medical history of hypertension, alcohol abuse was brought to the ER by EMS for alcohol intoxication. Patient said that he went out with with a few friends yesterday around 2 PM and started to drink alcohol. He said that he remember that he got a 32 ounces glass of beer initially followed with a few cans of beers. He said that his friend dropped him home later at night. He said when he got home he drank few more beers. Then he went outside to smoke cigarette. he said when he tries to get back inside the house, he fell while climbing the stairs. He said he was unable to get up. He said that his neighbor saw him and called EMS for help. He said he told his neighbor not to call the ambulance. Patient said he did not lose consciousness. He said he knew when the EMS came. He said that he hit his head and his right hip area. Prior to this incident, Patient said that the last time he had a drink was a week ago. He said that his friends were the one that invited him to drink yesterday. Patient said that he usually drank 1 or 2 beers after work. He said that last night he had a little bit too much of beers. In the ER his alcohol level was 364. Patient denies any previous history of alcohol withdrawal or DT. He is complaining of right side hip pain from the fall. [facility] He said that is a little bit depressed because his is going to be placed at [facility]. Denies any chest pain, palpitation, dizziness, shortness of breath and hallucination. Physical Exam (per Admitting): General Appearance: no apparent distress, + pertinent finding (smell alcohol ) Head: + pertinent finding (hematoma of right lateral forehead) Eyes: PERRL, + pertinent finding (nystagmus) ENT: hearing grossly normal Neck: no JVD, trachea midline Respiratory/Chest: lungs clear, no respiratory distress, no accessory muscle use Cardiovascular: regular rate, rhythm, no JVD, no murmur Abdomen/GI: normal bowel sounds, non tender Back: normal inspection, no CVA tenderness Extremities/Musculoskelatal: no calf tenderness, + pertinent finding ( bruising in right knee) Neurologic/Psych: alert, normal mood/affect, oriented x 3 Skin: no rash, + rash Hospital Course Nondisplaced Intertrochanteric Fracture, R Femur 07/05 - patient would like to go home today - will need home health - aspirin for DVT ppx 07/04 - patient is doing well - PT/OT recommend short term acute rehab, patient refusing at this time - agreeable to home health/home PT - will d/c to home on 07/05 07/03 - continue PT/OT - SNF vs. home health - likely d/c in AM - continue aspirin for DVT ppx as per ortho - pain is controlled 07/02 - s/p intertrochanteric nailing - pain is controlled - monitor vitals, labs - further input as per ortho Alcohol Abuse - gabapentin and banana bag - monitor for signs of withdrawal Ambulatory Dysfunction - PT/OT - may need placement HTN - BP stable Hypokalemia - monitor electrolytes DVT ppx - SCDs FULL CODE Total time spent on discharge = 45 minutes This includes examination of the patient, discharge planning, medication reconciliation, and communication with other providers. Discharge Instructions Please follow-up with your primary care physician * You will need to take aspirin 81mg twice a day for the next four weeks to prevent blood clots from forming * Use PATRIZIA stockings * Follow-up with Dr. Scanlon in 10-14 days - call [phone] to make an appointment * Use a walker as needed * You will be discharged with home health and home physical therapy
[2017-07-05 15:10] VITALS: BP 113/65; PULSE 56; TEMP 37; O2SAT 99
[2017-07-05 16:27] VITALS: O2SAT 99
[2017-07-05] MEDS ORDERED: GABAPENTIN 400MG X1 DOSE PO SCH (18:00)
== END 2017-07-05 17:40 | disposition home health service (06) | DRG 481 ==
LOC: EDBD 21:58 → C.EDA 22:00 → C.MSN 07-02 00:37 → EDBEDREQSVC 07-02 01:17 → ENRESERV 07-02 01:29
PROVIDERS: ADMIT Internal Medicine; ATTEND Family Medicine
PROC: 0QS604Z Reposition Right Upper Femur with Internal Fixation Device, Open Approach (ICD-10-PCS; principal; 2017-07-02 09:00)
DX: S72.144A Nondisplaced intertrochanteric fracture of right femur, initial encounter for closed fracture (principal); F10.239 Alcohol dependence with withdrawal, unspecified; S20.211A Contusion of right front wall of thorax, initial encounter; I10 Essential (primary) hypertension; S30.0XXA Contusion of lower back and pelvis, initial encounter; Z83.3 Family history of diabetes mellitus; F17.200 Nicotine dependence, unspecified, uncomplicated; E87.6 Hypokalemia; W10.9XXA Fall (on) (from) unspecified stairs and steps, initial encounter; Y92.019 Unspecified place in single-family (private) house as the place of occurrence of the external cause